=== PATIENT | female | born 1965 ===

== ENCOUNTER → 2025-05-17 09:33 | Outpatient (CLI) | payer OTHER | END | disposition home or self-care (01) | LOC: LAB 09:33 | DX: M81.0 Age-related osteoporosis without current pathological fracture (principal); I10 Essential (primary) hypertension; E78.3 Hyperchylomicronemia ==

== ENCOUNTER 2025-06-01 11:06 | Outpatient (CLI) | payer OTHER | END 2025-06-01 11:11 | disposition home or self-care (01) | LOC: LAB 11:06 | PROVIDERS: ATTEND Specialist | DX: B96.81 Helicobacter pylori [H. pylori] as the cause of diseases classified elsewhere (principal) ==